=== PATIENT | female | born 1950 | race Caucasian/White ===

== ENCOUNTER → 2023-09-22 | Day surgery (SDC) | payer OTHER, BC | END | disposition home or self-care (01) | LOC: JRADUS-SUR 09:31 | PROVIDERS: ATTEND Obstetrics & Gynecology | PROC: 0H9U3ZX Drainage of Left Breast, Percutaneous Approach, Diagnostic (ICD-10-PCS; principal; 2023-09-22) | DX: C50.912 Malignant neoplasm of unspecified site of left female breast (principal) | CPT/HCPCS: 19083; 77065-TC; 87899; A4648 ==

== ENCOUNTER 2023-11-09 04:11 | Day surgery (SDC) | payer OTHER, BC ==
[2023-11-05 14:07] VITALS: BMI 35.4
[2023-11-09] MEDS ORDERED: ALPRAZolam 0.25 MG TABLET ONE (13:23)
[2023-11-09] MEDS ORDERED: LIDOCAINE HCL 1%, 10 MG/ML (20ML VIAL) ONE (13:28)
[2023-11-09] MEDS ORDERED: ISOSULFAN BLUE 50 MG/5 ML VIAL SQ ONE (13:28)
[2023-11-09] MEDS: ALPRAZolam 0.25 MG TABLET PO ONE (13:35)
[2023-11-09] MEDS ORDERED: ALPRAZolam 1 MG TABLET PO PRN (13:57)
[2023-11-09] MEDS ORDERED: PROPOFOL 20 ML ONE (14:14)
[2023-11-09] MEDS ORDERED: LIDOCAINE HCL/PF 2% SDV 5ML VIAL ONE (14:14)
[2023-11-09] MEDS ORDERED: DEXAMETHASONE SOD PHOSPHATE 4 MG/1 ML VIAL ONE (14:14)
[2023-11-09] MEDS ORDERED: ONDANSETRON 4 MG/2 ML VIAL ONE (14:14)
[2023-11-09] MEDS ORDERED: MIDAZOLAM HCL 2 MG/2 ML SINGLE DOSE VIAL ONE (14:14)
[2023-11-09] MEDS ORDERED: PROMETHAZINE HCL 25 MG/1 ML VIAL IVPB PRN (14:52)
[2023-11-09] MEDS ORDERED: oxyCODONE HCL 5 MG TABLET PO PRN ×2 (14:52)
[2023-11-09] MEDS ORDERED: ONDANSETRON 4 MG/2 ML VIAL IVPUSH PRN (14:52)
[2023-11-09] MEDS ORDERED: LACTATED RINGERS SOLUTION 1,000 ML IV SCH (15:00)
[2023-11-09] MEDS ORDERED: ceFAZolin SODIUM 1 GM VIAL ONE (15:06)
[2023-11-09] MEDS: ceFAZolin SODIUM 1 GM VIAL IVPB ONE (15:07)
[2023-11-09] MEDS: LIDOCAINE HCL 1%, 10 MG/ML (20ML VIAL) INF ONE (15:25)
[2023-11-09] MEDS ORDERED: ACETAMINOPHEN INJECTION 100 ML IVPB ONE (16:18)
[2023-11-09] MEDS: ACETAMINOPHEN 1000 MG/100 ML BAG IVPB PRN (16:25)
[2023-11-09 17:29] VITALS: RESP 18
[2023-11-09 17:58] VITALS: BP 179/92; PULSE 78; TEMP 98
== END 2023-11-09 18:14 | disposition home or self-care (01) ==
LOC: JASU-SURG 04:11
PROVIDERS: ATTEND Surgery
PROC: 0HBU0ZZ Excision of Left Breast, Open Approach (ICD-10-PCS; principal; 2023-11-09 12:30)
DX: C50.912 Malignant neoplasm of unspecified site of left female breast (principal); Z17.0 Estrogen receptor positive status [ER+]
CPT/HCPCS: 78195-TC; 82962; 94760; A9541; J0131